=== PATIENT | female | born 1955 | race Asian ===

== ENCOUNTER → 2023-09-10 09:08 | Outpatient (REF) | payer MEDICARE, SELFPAY | LOC: HWRAD 09:08 | PROVIDERS: ATTENDING PHYSICIAN Family Medicine; FAMILY PHYSICIAN Internal Medicine | DX: R74.01 Elevation of levels of liver transaminase levels (principal); R10.2 Pelvic and perineal pain | CPT/HCPCS: 76700; 76830; 76856 ==